=== PATIENT | male | born 1950 | race Caucasian/White ===

== ENCOUNTER 2019-08-26 04:10 | Emergency (ER) | payer MEDICARE ==
[~2019-08-26] VITALS: Ht 175.3 cm; Wt 71.6 kg
--- NOTE | 2019-08-26 04:28 | NUR ---
PT C/O CHEST PALPITATIONS, DENIES PAIN, SOB, DIZZINESS. REPORTS PAIN STARTED ABOUT X2 HRS AGO. EKG PERFORMED, PT CONNECTED TO MONITORING. SAFETY MEASURES IN PLACE, CALL LIGHT WITHIN REACH.
--- NOTE | 2019-08-26 04:50 | NUR ---
ERP IN ROOM TO EVAL PT AND DISCUSS POC.
--- NOTE | 2019-08-26 05:23 | NUR ---
PT TO BR WITH STEADY GAIT. UPDATED POC. MONITORS RECONECTED, ALL SAFETY MEASURES IN PLACE, CALL LIGHT WITHIN REACH.
[2019-08-26 05:31] LABS: BASOPHILS # (AUTO) 0.02 x10^3/uL (0-0.1); BASOPHILS % (AUTO) 1 % (0-1); EOSINOPHILS # (AUTO) 0.16 x10^3/uL (0-0.4); EOSINOPHILS % (AUTO) 3 % (1-7); LYMPHOCYTES # (AUTO) 0.93 x10^3/uL (1-3.4); LYMPHOCYTES % (AUTO) 17 % (22-44); MD NO; MEAN CORPUSCULAR HEMOGLOBIN 31.3 pg (27.5-34.5); MEAN CORPUSCULAR HGB CONC 33.9 g/dL (33.2-36.2); MEAN CORPUSCULAR VOLUME 92.3 fL (81-97); MEAN PLATELET VOLUME 7.3 fL (7.4-10.4); MONOCYTES # (AUTO) 0.51 x10^3/uL (0.2-0.8); MONOCYTES % (AUTO) 9 % (2-9); NEUTROPHILS # (AUTO) 3.81 x10^3/uL (1.8-6.8); NEUTROPHILS % (AUTO) 70 % (42-75); PLATELET COUNT 328 x10^3/uL (130-400); RED BLOOD COUNT 5.01 x10^6/uL (4.38-5.82); RED CELL DISTRIBUTION WIDTH 13.4 % (9.4-14.8)
[2019-08-26 05:43] LABS: ANION GAP 5 mmol/L (5-15); CHLORIDE 109 mmol/L (98-107); CREATININE 1.06 mg/dL (0.7-1.3)
[2019-08-26 05:46] LABS: TROPONIN I < 0.015 ng/mL (0.000-0.045)
[2019-08-26] MEDS ORDERED: SODIUM CHLORIDE 0.9% 1,000ML IVBOLUS ONE (06:00)
--- NOTE | 2019-08-26 06:04 | NUR ---
PT RESTING ON ALISHA. ERP DR. ROTH IN TO DISCUSS POC. IVF HUNG PER MAR. PROVIDED WITH URINAL. PT ON MONITORING. ALL SAFETY MEASURES IN PLACE.
[2019-08-26 06:14] LABS: FREE T4 (FREE THYROXINE) 1.07 ng/dL (0.76-1.46)
[2019-08-26 06:56] VITALS: BP 131/82
== END 2019-08-26 06:57 | disposition home or self-care (01) ==
LOC: ED 06:09
DX: R00.0 Tachycardia, unspecified (principal); R06.02 Shortness of breath
CPT/HCPCS: 36415; 71045; 80048; 82040; 83880; 84439; 84443; 84484; 85025; 93005; 99284; J7030